=== PATIENT | female | born 1950 | race Caucasian/White ===

== ENCOUNTER 2016-05-30 13:02 | Outpatient (CLI) | payer OTHER ==
--- NOTE | 2016-06-01 09:51 | DIAGNOSTIC IMAGING REPORT ---
REFERRING PHYSICIAN/PROVIDER: Ricky Wallace MD CONSULTING CLINICAL LABORATORY TECHNOLOGIST: Franky Garrido MD PROCEDURE: M-mode 2D echocardiography with spectral and color flow Doppler TECHNICAL QUALITY: Fair INDICATION: MURMUR RHYTHM DURING PROCEDURE: Sinus rhythm INTERPRETATIONS: LEFT VENTRICLE: The left ventricle is normal in size wall thickness and systolic function without any focal wall motion abnormality. The assessed dated ejection fraction is 65%. There is abnormal diastolic function noted. RIGHT VENTRICLE: The right ventricle is normal in size and function. ATRIA: Both atria normal in size. The interatrial septum is intact with no evidence for an atrial septal defect. MITRAL VALVE: The mitral valve is grossly normal. There is trace mitral regurgitation noted. AORTIC VALVE: The aortic valve is trileaflet. The aortic valve opens well. There is no evidence of aortic regurgitation noted. TRICUSPID VALVE: Tricuspid valves are thin and pliable. There is trace tricuspid regurgitation noted. The right ventricular systolic pressure is estimated at 13 mmHg. PULMONIC VALVE: The pulmonic valve is not well visualized. There is trace pulmonic regurgitation noted. GREAT VESSELS: The aortic root is normal in size. PERICARDIUM: There is no evidence of any pericardial effusion. IMPRESSION: 1. Normal biventricular size and systolic function. 2. Abnormal diastolic function noted. 3. Normal biatrial size 4. No evidence of significant valvular disease 5. Normal right ventricular systolic pressure
== END 2016-05-30 23:00 ==
LOC: US SRH 13:02
DX: R01.1 Cardiac murmur, unspecified (principal)